=== PATIENT | male | born 1935 | race Caucasian/White ===

== ENCOUNTER 2018-06-15 05:35 | Emergency (ER) | payer MEDICARE, SELFPAY ==
[2018-06-15] VITALS (7 sets, daily range): BP systolic 113–122; BP diastolic 38–63; PULSE 54–96; RESP 17–20; TEMP 36.3; O2SAT 90–99; BMI 28.5
[2018-06-15 06:00] LABS: Bedside Glucose 215 mg/dL (70-110)
--- NOTE | 2018-06-15 06:11 | ED.RN ---
DR. RUSSO AT BEDSIDE, SPEAKING WITH SON AND EVALUATING PATIENT. PT ANSWERING QUESTIONS APPROPRIATELY.
--- NOTE | 2018-06-15 06:46 | CT_ITS ---
STUDY: CT BRAIN WITHOUT CONTRAST REASON FOR EXAM: Male, 82 years old. Confusion and agitation. Combative. RADIATION DOSAGE (If Supplied By Facility): CTDIvol = ( 44.99 ) mGy, DLP = ( 796.11 ) mGycm TECHNIQUE: Transaxial CT imaging of the brain was performed without administration of intravenous contrast material. Individualized dose optimization techniques were used for this CT. COMPARISON: None. FINDINGS: Normal soft tissue structures. Normal calvarium. There is moderate cerebral atrophy with widening of the extra-axial spaces and ventricular dilatation. There are areas of decreased attenuation within the white matter tracts of the supratentorial brain, consistent with microvascular disease changes. There are small punctate calcifications of the basal ganglia which are seen in the aging brain as a normal variant. Normal brainstem. There is mild cerebellar atrophy. There is no intracranial hemorrhage. There are no findings of an acute ischemic infarction. Dense atherosclerotic calcification of the vertebral arteries and cavernous portions of the internal carotid arteries bilaterally. Partial opacification of the maxillary sinuses and ethmoid sinuses bilaterally. Mucosal thickening of the frontal sinus. Mucosal thickening of the sphenoid sinus. CT/Brain/Head without Contrast IMPRESSION: Chronic involutional changes of the brain. Pansinusitis. Electronically Signed: Jerad Carter MD at 8:21 EST , Service support ,
--- NOTE | 2018-06-15 06:46 | EKG12_ITS ---
Test Reason : ALT LOC Blood Pressure : / mmHG Vent. Rate : 099 BPM Atrial Rate : 099 BPM P-R Int : 138 ms QRS Dur : 112 ms QT Int : 368 ms P-R-T Axes : 073 -44 089 degrees QTc Int : 472 ms Normal sinus rhythm Left axis deviation Nonspecific ST and T wave abnormality Abnormal ECG Confirmed by AMANDA MCQUEEN, JONATHAN ([id number]), writer editor MONSERRAT BROCK ([id number] on 06/16/2018 3:15:01 PM Referred By: KARAN Confirmed By:JONATHAN PATEL MD
--- NOTE | 2018-06-15 06:46 | RAD_ITS ---
STUDY: X-RAY CHEST REASON FOR EXAM: Male, 82 years old. Confusion. History of pneumonia. TECHNIQUE: Single AP portable view of the chest. COMPARISON: None. FINDINGS: There is evidence of a bilateral perihilar increased markings with areas of confluence worse in the left perihilar region. This may represent either infiltration and/or chronic scarring. Mild increased markings are also seen in the right upper lobe. There is no demonstrated pleural abnormality. Normal size heart. Normal mediastinum and natalia. Normal visualized pulmonary arteries. There is atherosclerotic calcification of the aortic arch with tortuosity. There are diffuse degenerative changes of the visualized thoracic spine. There is degenerative osteoarthritis of the bilateral shoulders. There is no demonstrated abnormality of the visualized soft tissue structures of the upper abdomen. RAD/Chest 1 View (Portable) IMPRESSION: Bilateral perihilar infiltrates and/or scarring was on the left side. Increased markings in the right upper lobe as well. Electronically Signed: Jerad Carter MD at 8:22 EST , Service support ,
--- NOTE | 2018-06-15 06:49 | ED.VIS.GEN ---
History of Present Illness Informant: Patient, Family Onset: Weeks - 1 Context: Gradual Onset Timing: Intermittent Quality: agitation Current Severity: gone Maximum Severity: Severe Worsened by: in the evenings/nighttime Narrative: Patient had a fall that was mechanical in his garage about a week ago or so, seen in the [place] the ER and diagnosed with a thoracic spinal fracture in addition to pneumonia, which was incidentally found, he had been coughing quite a bit recently. He was admitted to [facility] in [place] for these issues, where he was an inpatient for about a week. He was [facility] less than 24 hours ago to [facility]. He has been agitated in the evenings since being admitted to the hospital a week ago. He was given Haldol 1 time every evening according to [facility] records, but because of agitation he was sent to the local ED in [facility]. He was worked up medically and determined it was safe to be discharged back to the [facility]. However, prior to this, in route to [place], paramedics were dealing with him in a very agitated and confused state, and for reasons that are unclear even tried to sedate him with etomidate and intubate him which was unsuccessful. In the emergency department he was treated for his agitation and eventually discharged back to the [facility]. After the ED physician spoke to family members, which I have confirmed this morning, he now is DNR comfort care arrest with no intubation. However prior to this, he was functioning fairly well with signs of the early stages of dementia, living at home with his . Today, he was sent from the [facility] again for unknown reasons, although they said that he was agitated and they wanted a second opinion. He did not receive any prn medications for agitation prior to arrival here in the ER this morning. <Barron Brennan - Last Filed: 06/15/18 06:49> <Bronson Evans - Last Filed: 06/15/18 11:14> Chief Complaint: Alt LOC - Past Medical History (1) HTN (hypertension) Status: Chronic (2) Type 2 diabetes mellitus Status: Chronic (3) Fracture of spinous process of cervical vertebra Status: Acute (4) Compression fracture of T1 vertebra Status: Acute (5) Burst fracture of lumbar vertebra Status: Acute (6) Hyperlipidemia Status: Chronic (7) Kidney stones Status: Chronic (8) BPH (benign prostatic hyperplasia) Status: Chronic <Barron Brennan - Last Filed: 06/15/18 06:49> Past Medical History Smoking Status: Unknown if ever smoked <Barron Brennan - Last Filed: 06/15/18 06:49> <Bronson Evans - Last Filed: 06/15/18 11:14> - Allergies and Home Meds Allergies/Adverse Reactions: Allergies chocolate flavor Allergy (Verified 06/15/18 05:46) Unknown Penicillins [PCN] Allergy (Verified 06/15/18 05:46) Unknown Sulfa (Sulfonamide Antibiotics) Allergy (Verified 06/15/18 05:46) Unknown Primary Care Physician: Cristofer Washington MD [Primary Care Provider] - Review of Systems General: Denies: Chills, Fever, Sweats Eyes: Denies: Visual changes - bilaterally, Diplopia ENT: Denies: Bilateral ear pain, Rhinorrhea, Sore throat Cardiovascular: Denies: Chest pain, Palpitations Respiratory: Reports: Cough. Denies: Dyspnea, Sputum Gastrointestinal: Denies: Abdominal pain, Nausea, Vomiting, Diarrhea Genitourinary: Denies: Dysuria, Hematuria Musculoskeletal: Reports: Back pain. Denies: Neck pain, Extremity Pain Skin: Denies: Rash, Wounds Neurological: Denies: Headache, Weakness, Numbness Psych: Reports: - - agitation. see hpi.. Denies: Suicidal thoughts <Barron rBennan - Last Filed: 06/15/18 06:49> Physical Exam Vital Signs/Narrative: Vital Signs Temp Pulse Resp BP Pulse Ox 06/15/18 06:41 90 06/15/18 06:11 98 06/15/18 05:45 96 06/15/18 05:37 97.4 F L 96 20 H 113/63 95 Inital Vital Signs reviewed: Yes General: Well nourished, Well developed, No Acute Distress. Negative for: Acute Distress Head: Normocephalic, Atraumatic Eyes: Perrl, EOMI ENT: No rhinorrhea, Dry mucous membranes Neck: Supple, Nontender, No lymphadenopathy, No JVD Cardiovascular: Regular rate, Regular rhythm, No murmurs. Negative for: Tachycardia Respiratory: No distress, CTA bilaterally, Chest nontender, Diminished - throughout, symmetrically Abdomen: Soft, Nontender, Nondistended, Normal bowel sounds Back: Normal Inspection, - - TLSO brace in place; pt able to sit up w/ assistance w/ brace on Extremities: Nontender, No edema Skin: Normal color, No rash Neurological: Alert, Cranial nerves II-XII grossly intact, Normal Strength, Normal Sensation, Disoriented - to time, but oriented to person, place. confused w/ regards to some things -- thinks his glasses are broke; they are not present. Psychological: Normal affect - calm, cooperative, conversive <Barron Brennan - Last Filed: 06/15/18 06:49> Vital Signs/Narrative: Vital Signs Pulse Resp BP Pulse Ox 06/15/18 09:00 83 18 118/60 92 <Bronson Evans - Last Filed: 06/15/18 11:14> Diagnostic/Tx/Re-eval - Medical Decision Making Patient signed out to me. His workup was all fairly unremarkable. He does have some findings consistent with his recent pneumonia on his chest x-ray. But his white count is better, he is not febrile. His cough and breathing are better. I believe this is a resolving pneumonia and not a worsening pneumonia. I believe he is medically cleared for admission to a psychiatric facility. Staff from [facility] in [facility] are here to admit the patient. <Bronson Evans - Last Filed: 06/15/18 11:14> ED Disposition <Barron Brennan - Last Filed: 06/15/18 06:49> <Bronson Evans - Last Filed: 06/15/18 11:14> - Plan for ED Patient: Diagnosis: Agitation, CAP (community acquired pneumonia) Referrals: Cristofer Washington MD [Primary Care Provider] -
--- NOTE | 2018-06-15 06:53 | NURSING ---
NO OLD EKGS
--- NOTE | 2018-06-15 06:56 | ED.DCSUM_ITS ---
History of Present Illness Informant: Patient, Family Onset: Weeks - 1 Context: Gradual Onset Timing: Intermittent Quality: agitation Current Severity: gone Maximum Severity: Severe Worsened by: in the evenings/nighttime Narrative: Patient had a fall that was mechanical in his garage about a week ago or so, seen in the [place] the ER and diagnosed with a thoracic spinal fracture in addition to pneumonia, which was incidentally found, he had been coughing quite a bit recently. He was admitted to [facility] in [place] for these issues, where he was an inpatient for about a week. He was discharged less than 24 hours ago to local assisted. He has been agitated in the evenings since being admitted to the hospital a week ago. He was given Haldol 1 time every evening according to assisted records, but because of agitation he was sent to the local ED in [facility]. He was worked up medically and determined it was safe to be discharged back to the assisted. However, prior to this, in route to [place], paramedics were dealing with him in a very agitated and confused state, and for reasons that are unclear even tried to sedate him with etomidate and intubate him which was unsuccessful. In the emergency department he was treated for his agitation and eventually discharged back to the assisted. After the ED physician spoke to family members, which I have confirmed this morning, he now is DNR comfort care arrest with no intubation. However prior to this, he was functioning fairly well with signs of the early stages of dementia, living at home with his . Today, he was sent from the assisted again for unknown reasons, although they said that he was agitated and they wanted a second opinion. He did not receive any prn medications for agitation prior to arrival here in the ER this morning. <Barron Brennan - Last Filed: 06/15/18 06:49> <Bronson Evans - Last Filed: 06/15/18 11:14> Chief Complaint: Alt LOC - Past Medical History (1) HTN (hypertension) Status: Chronic (2) Type 2 diabetes mellitus Status: Chronic (3) Fracture of spinous process of cervical vertebra Status: Acute (4) Compression fracture of T1 vertebra Status: Acute (5) Burst fracture of lumbar vertebra Status: Acute (6) Hyperlipidemia Status: Chronic (7) Kidney stones Status: Chronic (8) BPH (benign prostatic hyperplasia) Status: Chronic <Barron Brennan - Last Filed: 06/15/18 06:49> Past Medical History Smoking Status: Unknown if ever smoked <Barron Brennan - Last Filed: 06/15/18 06:49> <rBonson Evans - Last Filed: 06/15/18 11:14> - Allergies and Home Meds Allergies/Adverse Reactions: Allergies chocolate flavor Allergy (Verified 06/15/18 05:46) Unknown Penicillins [PCN] Allergy (Verified 06/15/18 05:46) Unknown Sulfa (Sulfonamide Antibiotics) Allergy (Verified 06/15/18 05:46) Unknown Primary Care Physician: Cristofer Washington MD [Primary Care Provider] - Review of Systems General: Denies: Chills, Fever, Sweats Eyes: Denies: Visual changes - bilaterally, Diplopia ENT: Denies: Bilateral ear pain, Rhinorrhea, Sore throat Cardiovascular: Denies: Chest pain, Palpitations Respiratory: Reports: Cough. Denies: Dyspnea, Sputum Gastrointestinal: Denies: Abdominal pain, Nausea, Vomiting, Diarrhea Genitourinary: Denies: Dysuria, Hematuria Musculoskeletal: Reports: Back pain. Denies: Neck pain, Extremity Pain Skin: Denies: Rash, Wounds Neurological: Denies: Headache, Weakness, Numbness Psych: Reports: - - agitation. see hpi.. Denies: Suicidal thoughts <Barron Brennan - Last Filed: 06/15/18 06:49> Physical Exam Vital Signs/Narrative: Vital Signs Temp Pulse Resp BP Pulse Ox 06/15/18 06:41 90 06/15/18 06:11 98 06/15/18 05:45 96 06/15/18 05:37 97.4 F L 96 20 H 113/63 95 Inital Vital Signs reviewed: Yes General: Well nourished, Well developed, No Acute Distress. Negative for: Acute Distress Head: Normocephalic, Atraumatic Eyes: Perrl, EOMI ENT: No rhinorrhea, Dry mucous membranes Neck: Supple, Nontender, No lymphadenopathy, No JVD Cardiovascular: Regular rate, Regular rhythm, No murmurs. Negative for: Tachycardia Respiratory: No distress, CTA bilaterally, Chest nontender, Diminished - throughout, symmetrically Abdomen: Soft, Nontender, Nondistended, Normal bowel sounds Back: Normal Inspection, - - TLSO brace in place; pt able to sit up w/ assistance w/ brace on Extremities: Nontender, No edema Skin: Normal color, No rash Neurological: Alert, Cranial nerves II-XII grossly intact, Normal Strength, Normal Sensation, Disoriented - to time, but oriented to person, place. confused w/ regards to some things -- thinks his glasses are broke; they are not present. Psychological: Normal affect - calm, cooperative, conversive <Barron Brennan - Last Filed: 06/15/18 06:49> Vital Signs/Narrative: Vital Signs Pulse Resp BP Pulse Ox 06/15/18 09:00 83 18 118/60 92 <Bronson Evans - Last Filed: 06/15/18 11:14> Diagnostic/Tx/Re-eval - Medical Decision Making Patient signed out to me. His workup was all fairly unremarkable. He does have some findings consistent with his recent pneumonia on his chest x-ray. But his white count is better, he is not febrile. His cough and breathing are better. I believe this is a resolving pneumonia and not a worsening pneumonia. I believe he is medically cleared for admission to a psychiatric facility. Staff from [facility] in [facility] are here to admit the patient. <Bronson Evans - Last Filed: 06/15/18 11:14> ED Disposition <Barron Brennan - Last Filed: 06/15/18 06:49> <Bronson Evans - Last Filed: 06/15/18 11:14> - Plan for ED Patient: Diagnosis: Agitation, CAP (community acquired pneumonia) Referrals: Cristofer Washington MD [Primary Care Provider] -
[2018-06-15 06:59] LABS: Color, Urine Yellow (Yellow); Glucose, Dipstick 250 mg/dl (Normal); Ketone-Dipstick 50 mg/dl (Negative); Leukocyte Esterase-Dipstick 25 /ul (Negative); Nitrite-Dipstick Negative (Negative); Occult Blood-Urine 150 /ul (Negative); Protein-Dipstick 30 mg/dl (Negative); Urine Bilirubin Dipstick Negative (Negative); Urine Clarity Sl. Cloudy (Clear); Urine Urobilinogen Normal (Normal)
[2018-06-15 07:06] LABS: Absolute Lymphocyte Count 0.87 X10^3/ul (0.83-4.51); Absolute Neutrophil Count 8.1 X10^3/uL (2.0-7.7); Basophil# 0.05 X10^3/uL; Basophil% 0.5 % (0-1); Eosinophils% 2.9 % (0-5); Hematocrit 37.8 % (40-54); Hemoglobin 12.7 g/dl (13.0-16.5); Lymphocyte # 0.87 X10^3/ul (4.0); Lymphocyte % 8.5 % (19-41); Mean Corp Hgb Conc 33.6 g/gl (32-36); Mean Corpuscular Hgb 30.2 pg (27.0-32.0); Mean Corpuscular Volume 89.8 fL (80-94); Mean Platelet Vol. 9.1 fl (6.2-12.0); Monocyte# 0.75 X10^3/uL; Monocyte% 7.3 % (0-10); Neutrophil % 78.7 % (47-70); POSITIVE COUNT YES; POSITIVE DIFFERENTIAL NO; POSITIVE MORPHOLOGY YES; Platelet Count 428 K/mm3 (150-450); RBC Distribution Width CV 12.9 % (11.6-14.6); RBC Distribution Width SD 41.7 fl (35.1-43.9); Red Blood Count 4.21 M/mm3 (4.6-6.2); White Blood Count 10.3 K/mm3 (4.4-11.0)
[2018-06-15 07:07] LABS: Amorphous Sediment 1+; Bacteria 1+ /hpf (None Seen); Mucous, Urine 1+ /hpf (<or=2+); Red Blood Cells-Urine 5-10 SEEN /hpf (0-5); Squamous Epithelial Cells - UA 0-5 SEEN /hpf (0-5); Uric Acid Crystals Ur 3+ /hpf (<or=1+); White Blood Cells 0-5 SEEN /hpf (0-5)
[2018-06-15 07:09] LABS: Amphetamine Urine VISTA NEGATIVE (<1000 ng/mL); Barbiturate Urine VISTA NEGATIVE (< 200 ng/mL); Benzodiazepine Urine VISTA NEGATIVE (< 200 ng/mL); Cocaine Urine VISTA NEGATIVE (< 300 ng/mL); Ecstacy Urine VISTA NEGATIVE (< 500 ng/mL); Methadone Urine VISTA NEGATIVE (< 300 ng/mL); PCP Urine VISTA NEGATIVE (< 25 ng/mL); THC Urine VISTA NEGATIVE (< 50 ng/mL); Vista UDS pH Range 6
[2018-06-15 07:18] LABS: ALB/GLOB Ratio 0.7 RATIO (0.9-2.4); AST(SGOT) 43 U/L (15-37); Alanine Aminotransfer ALT/SGPT 52 U/L (16-61); Alkaline Phosphatase 108 U/L (45-117); Anion Gap 12 (5-15); BUN 42 mg/dL (7-18); BUN/Creat Ratio 26.9 RATIO (10-20); Calcium,Total 9.5 mg/dL (8.5-10.1); Chloride 99 mmol/L (98-107); Creatinine, Serum 1.56 mg/dL (0.70-1.30); EST Glomerular Filtration Rate 46 mL/min (>60); Est Glom Filt Rate - Afr Amer 55 mL/min (>60); Estimated Creatinine Clearance 41.45 ml/min; Globulin 4.3 g/dL (2.2-4.2); Glucose 225 mg/dL (74-106); Potassium 3.9 mmol/L (3.5-5.1); Protein, Total 7.3 g/dL (6.4-8.2); Sodium Level 142 mmol/L (136-145); Thyroid Stim Hormone (TSH) 1.76 uIU/mL (0.358-3.74)
[2018-06-15 07:41] LABS: Alcohol, Blood (Medical)-Serum < 3.0 mg/dL
--- NOTE | 2018-06-15 09:57 | NURSING ---
MIGUEL A HERE TO EVAL PT FROM [facility] FOR [facility]CH EVAL/ADMISSION.FAMILHY REPORTS SAYING THAT DAD HAS TO HAVE A BM
--- NOTE | 2018-06-15 09:57 | NURSING ---
WORKER HERE FROM [facility]
[2018-06-15 10:22] LABS: Pathologist Review Reviewed
[2018-06-15] MEDS: Mag Hydrox/Al Hydrox/Simeth 30 ML UDC PO (11:19)
--- NOTE | 2018-06-15 11:22 | NURSING ---
RIDE FOR PATIENT WILL BE HERE BETWEEN 12 AND 1233
[2018-06-16 05:07] LABS: HEPATITIS B SURFACE AG Negative (Negative); Hepatitis A IgM Antibody Negative (Negative); Hepatitis B Core AB IgM Negative (Negative)
[2018-06-16 07:38] LABS: Rapid Plasmin Reagin (RPR) NONREACTIVE (NONREACTIVE)
[2018-06-16 11:13] LABS: Hep C Antibodies <0.1 s/co ratio (0.0-0.9)
== END 2018-06-15 12:41 ==
PROVIDERS: Emergency Provider Emergency Medicine; Family Provider Family Medicine; PCP Family Medicine
DX: J18.9 Pneumonia, unspecified organism (principal); R45.1 Restlessness and agitation; M54.9 Dorsalgia, unspecified; I10 Essential (primary) hypertension; E11.9 Type 2 diabetes mellitus without complications; E78.5 Hyperlipidemia, unspecified; N40.0 Benign prostatic hyperplasia without lower urinary tract symptoms; Z66 Do not resuscitate; Z87.442 Personal history of urinary calculi; Z79.82 Long term (current) use of aspirin; Z79.84 Long term (current) use of oral hypoglycemic drugs; Z79.899 Other long term (current) drug therapy
CPT/HCPCS: 36415; 70450; 71045; 80053; 80074; 80307; 80320; 81001; 82962; 84443; 85025; 86592; 93005; 99285; A4216; G0480